=== PATIENT | female | born 1940 | race Caucasian/White ===

== ENCOUNTER → 2024-03-05 09:13 | Outpatient (CLI) | payer MEDICARE, OTHER, SELFPAY ==
[2024-03-05 10:24] LABS: Influenza A - CEPHEID Flu A NEGATIVE (NEGATIVE); Influenza B - CEPHEID Flu B NEGATIVE (NEGATIVE); Respiratory Syncytial Virus Negative (Negative)
[2024-03-05 10:25] LABS: COVID-19 CEPHEID 4-PLEX PCR POSITIVE (Negative)
== END ==
PROVIDERS: Visit Provider Nurse Practitioner Family
DX: R05.1 Acute cough (principal)
CPT/HCPCS: 0241U